=== PATIENT | female | born 1990 | race Caucasian/White ===

== ENCOUNTER 2017-02-23 20:36 | Emergency (ER) | payer MEDICAID ==
[~2017-02-23 20:36] MED LIST: ADVAIR 10028 BLISTER INH; ADVAIR 25028 BLISTE1 INH; ADVIL200 M3 PO; ALBUTEROL INH 0.3 ML AERO NEB; ALBUTEROL SULF8.5 GM INH; AMOXICILLIN500 M2 PO; ANTIVERT25 M1 PO; ATIVAN1 M2 PO; BUTISOL SODIUM30 MG PO; CEPHALEXIN500 MG PO; HYDROCODON-ACE1 EA16 PO; HYDROCODONE/APA1 TAB PO; K-TAB ER20 ME1 PO; MOTRIN800 MG PO; NORCO 5-325 TA1 EACH PO; NORCO 5/325 TAB1 TAB PO; POTASSIUM CHLO10 MEQ PO; PRENATA CHEWAB1 EAC1 PO; PRILOSEC20 M1 PO; PROMETHAZINE25 MG PO; SIMILAC PRENAT1 EACH PO; SYMBICORT 80-41 PUFF INH; TRIAMCINOLONE A15 TP; VISTARIL25 MG PO; ZOFRAN ODT4 MG/UDTAB PO
[2017-02-24] MEDS ORDERED: NORCO 5-325 TA1 EACH PO (00:07)
[2017-02-24] MEDS ORDERED: CYCLOBENZAPRINE5 M1 PO (00:07)
== END 2017-02-24 00:16 ==
LOC: EDMED 20:36
DX: M54.6 Pain in thoracic spine (principal); J45.909 Unspecified asthma, uncomplicated; F41.9 Anxiety disorder, unspecified; Z91.041 Radiographic dye allergy status; Z88.1 Allergy status to other antibiotic agents; Z88.2 Allergy status to sulfonamides; Z79.51 Long term (current) use of inhaled steroids; Z79.899 Other long term (current) drug therapy